=== PATIENT | female | born 1960 | race Caucasian/White ===

== ENCOUNTER 2017-12-28 23:54 | Emergency (ER) | payer OTHER ==
--- NOTE | 2017-12-29 01:15 | EDPHY ---
H & P Stated Complaint: +ETOH, fell down approx 8 steps struck back of head. ?LOC Time Seen by Provider: 12/29/17 00:11 HPI/ROS: Chief Complaint: Fall, head injury HPI: 57-year-old woman's bowel down a flight of stairs after she slipped. She struck the back of her head and sustained a laceration. She is uncertain she may have had a brief loss of consciousness. She does admit to drinking alcohol this evening after celebrating 57th birthday. found her at the bottom of the stairs and she seemed dazed but was awake. No nausea or vomiting. No neck pain. No other injuries. ROS: 10 systems were reviewed and were negative except those elements noted in the HPI. PMH: Denies Social History: No smoking, occasional alcohol, no recreational drug use Family History: non-contributory Physical Exam: Gen: Awake, Alert, Airway Intact HEENT: Head: Occipital scalp laceration, no active bleeding at this time Eyes: PERRLA, EOMI Nose: No epistaxis Mouth: Normal dentition, Airway patent Face: No deformity Neck: non-tender, no stepoff, Full ROM without pain Chest: non-tender, lungs CTA Heart: normal heart tones Abd: soft, non-tender, atraumatic Pelvis: non-tender, stable to AP and Lateral compression Back: atraumatic, no midline tenderness Ext: atramatic, full ROM Skin: no rash Neuro: CN II-XII intact, Strength 5/5 in all extremities, sensation intact in all extremities - Personal History Current Tetanus Diphtheria and Acellular Pertussis (TDAP): Yes - Medical/Surgical History Hx Asthma: No Hx Chronic Respiratory Disease: No Hx Diabetes: No Hx Cardiac Disease: No Hx Renal Disease: No Hx Cirrhosis: No Hx Alcoholism: No Hx HIV/AIDS: No Hx Splenectomy or Spleen Trauma: No - Social History Smoking Status: Former smoker Constitutional: Initial Vital Signs Temperature (C) 36.4 C 12/28/17 23:56 Heart Rate 102 H 12/28/17 23:56 Respiratory Rate 16 12/28/17 23:56 Blood Pressure 137/85 H 12/28/17 23:56 O2 Sat (%) 94 12/28/17 23:56 O2 Delivery Mode Room Air Allergies/Adverse Reactions: sulfamethoxazole [From Bactrim] Allergy (Verified 12/29/17 00:01) trimethoprim [From Bactrim] Allergy (Verified 12/29/17 00:01) Home Medications: Medication Instructions Recorded Zoloft 100mg (*) 12/29/17 Medical Decision Making - Diagnostics Imaging Results: CT scan of the head and cervical spine are negative per Dr. Mcgee. Imaging: Discussed imaging studies w/ score caller Radiologist Procedures: Procedure: Laceration repair. Verbal consent was obtained from the patient. The 2 cm laceration on the scalp was anesthetized in the usual fashion. The wound was irrigated, draped and explored to its base with a gloved finger. There were no deep structures involved. No tendon injury was identified. The wound was repaired with 6 glen. The wound repair was uncomplicated. The procedure was performed by myself. ED Course/Re-evaluation: 57-year-old woman with 2 parallel scalp lacerations been repaired with glen. Total length is [address] scan of the head neck are negative. She will be discharged with head injury instructions and wound care instructions. Departure - Departure Disposition: Home, Routine, Self-Care Clinical Impression: Scalp laceration Condition: Good Instructions: Laceration (ED), Staple Care (ED) Additional Instructions: Glen need to be removed in 7-10 days. Return to the emergency department for worsening headache, nausea vomiting, worsening confusion, fevers, or any other concerns. Referrals: Jeanie Chirinos MD [place] [place] - As per Instructions
[2017-12-29 02:15] VITALS: BP 104/66
== END 2017-12-29 02:17 | disposition home or self-care (01) ==
PROC: 0HQ0XZZ Repair Scalp Skin, External Approach (ICD-10-PCS; principal; 2017-12-29)
DX: S01.01XA Laceration without foreign body of scalp, initial encounter (principal); W10.8XXA Fall (on) (from) other stairs and steps, initial encounter; Y99.8 Other external cause status; Z87.891 Personal history of nicotine dependence